=== PATIENT | male | born 1955 | race Caucasian/White ===

== ENCOUNTER → 2019-03-02 | Outpatient (CLI) | payer BC ==
--- NOTE | 2019-03-02 15:57 | US ---
EXAMINATION TYPE: US venous doppler duplex LE RT DATE OF EXAM: 03/02/2019 3:42 PM COMPARISON: NONE CLINICAL HISTORY: M79.604 Pain right leg. Right leg pain and swelling SIDE PERFORMED: Right TECHNIQUE: The lower extremity deep venous system is examined utilizing real time linear array sonog xavi with graded compression, doppler sonography and color-flow sonography. VESSELS IMAGED: External Iliac Vein (EIV) Common Femoral Vein Deep Femoral Vein Greater Saphenous Vein * Femoral Vein Popliteal Vein Small Saphenous Vein * Proximal Calf Veins (* superficial vessels) Right Leg: Appears negative for DVT Grayscale, color doppler, spectral doppler imaging performed of the deep veins of the right lower ext remity. There is normal flow, compressibility, vascular waveforms. IMPRESSION: No ultrasound evidence for acute DVT in the right lower extremity.
[2019-03-02 16:31] LABS: Basophils % (A) 0 %; Eosinophils # (A) 0.3 k/uL (0-0.7); Eosinophils % (A) 3 %; HCT 43.2 % (39.0-53.0); HGB 14.6 gm/dL (13.0-17.5); Lymphocytes # (A) 2.2 k/uL (1.0-4.8); Lymphocytes % (A) 24 %; MCH 29.5 pg (25.0-35.0); MCHC 33.8 g/dL (31.0-37.0); MCV 87.4 fL (80.0-100.0); Mean Platelet Volume 6.7; Monocytes # (A) 0.6 k/uL (0-1.0); Monocytes % (A) 7 %; Neutrophils # (A) 5.9 k/uL (1.3-7.7); Neutrophils % (A) 64 %; Platelet Count 225 k/uL (150-450); RBC 4.94 m/uL (4.30-5.90); RDW 13.4 % (11.5-15.5); WBC 9.2 k/uL (3.8-10.6)
[2019-03-02 16:42] LABS: Albumin 4.5 g/dL (3.5-5.0); Calcium 9.4 mg/dL (8.4-10.2); Potassium 4.7 mmol/L (3.5-5.1); Total Bilirubin 0.9 mg/dL (0.2-1.3); Total Protein 7.6 g/dL (6.3-8.2)
--- NOTE | 2019-03-02 17:17 | XR ---
EXAMINATION TYPE: XR tibia fibula RT DATE OF EXAM: 03/02/2019 COMPARISON: NONE HISTORY: Pain TECHNIQUE: Two views are submitted. FINDINGS: The osseous structures are intact. The joint spaces are preserved. Large calcaneal spurs are noted. Spur involving the Achilles insertion calcaneal appear from the calcaneus. There is a tiny bony density adjacent to the medial malleolus IMPRESSION: 1. Tiny bony densities adjacent the medial malleolus too small to characterize but likely chronic cor relate with point tenderness to exclude avulsion injury. 2. Large calcaneal spurs..
== END | disposition home or self-care (01) ==
LOC: RADUSWWP 15:07
PROVIDERS: ATTEND Internal Medicine
DX: M79.604 Pain in right leg (principal)
CPT/HCPCS: 80053; 85025

== ENCOUNTER → 2019-05-10 | Outpatient (CLI) | payer MEDICARE, BC ==
--- NOTE | 2019-05-10 21:03 | CONS ---
CONSULTATION REASON FOR CONSULTATION: Sleep apnea. HISTORY OF PRESENT ILLNESS: This is a 64-year-old male patient who is coming in to be evaluated for sleep apnea. The patient was diagnosed having obstructive sleep apnea more than 20 years ago. His evaluation was done through a Sleep Center in [place]. The patient was diagnosed having severe GUMARO and he was given a CPAP treatment. Over the years, the patient has lost around 100 pounds and he did not feel he was in need of further CPAP therapy and he quit the treatment altogether. Subsequently, he gradually started gaining weight and he has gained already around 80 pounds back. Currently he weighs around 304 pounds. In the interim, he developed coronary artery disease and underwent coronary artery bypass surgery around 6 weeks ago at [facility]. Postop he developed also some atrial fibrillation. He is coming in to reevaluate himself for sleep apnea. He is very much concerned about sleep apnea knowing that he is somnolent and sleepy. Cincinnati Score is at 9. He is snoring and his has reported that he is quitting breathing at night and there has been reported history of witnessed apneas. Note that the patient is status post UPPP that was done many years back. He goes to bed around 12:30 am, wakes up 6:30 a.m. in the morning. Averages around 6 hours of sleep. It takes him a few minutes to fall asleep. No choking or gasping for air in the middle of the night. No restlessness in the lower extremities. No nocturnal angina or shortness of breath. PAST MEDICAL HISTORY: 1. CAD with previous bypass surgery. It was done approximately 6 weeks ago at [facility]. 2. Obstructive sleep apnea. 3. Postop atrial fibrillation, currently rhythm is sinus. 4. Obesity. PAST SURGICAL HISTORY: Past surgical history includes coronary artery bypass surgery. UPPP, carpal tunnel release, angioplasty and hemorrhoid resection. DRUG ALLERGIES: Not known. OUTPATIENT MEDICATION LIST: Includes: 1. Metoprolol 50 mg p.o. 2 tablets twice a day. 2. Aspirin 81 mg p.o. daily. 3. Pravastatin 4 mg p.o. daily. 4. Eliquis 5 mg p.o. twice a day. SOCIAL HISTORY: The patient is a nonsmoker. No history of alcohol. No history of IV drugs. FAMILY HISTORY: A sister has obstructive sleep apnea. REVIEW OF SYSTEMS: Fourteen-point review of system was done. Positive findings are mentioned in history of present illness. He is a retired aircraft cleaner. No reported history of choking or gasping for air. No nocturia. No grinding of the teeth. No sleepwalking or dry mouth. No anxiety or panic attacks. No heartburn. No palpitation. No depression. No claustrophobia. No sexual dysfunction. No issues with memory or concentration. No altered mentation. PHYSICAL EXAMINATION: BP is 117/74, pulse 92, respirations 16, temperature 98.5, saturation 95% on room air. Cincinnati score is 9. Neck size 18 inches. BMI 45.5, height is 5 feet 8 inches, weight is 304.4. General appearance: Calm, comfortable, obese. Head is atraumatic, normocephalic. NECK: Supple. No JVD. No goiter or neck masses. He has got no uvula and soft palate has been resected post UPPP. Lungs: Diminished otherwise clear. HEART: Sounds regular rate and rhythm. Normal S1, S2. No S3. No murmurs. ABDOMEN: Soft, nontender. No organomegaly. EXTREMITIES: No edema. No cyanosis or clubbing. NEUROLOGIC: He is awake, alert x3. There are no focal neurological deficits. PSYCHIATRIC: Negative for anxiety or depression. IMPRESSION: 1. Obstructive sleep apnea. The patient is coming in for reevaluation. He has lost significant amount of weight over the years and he quit the treatment and after he gained some of his weight back, he is coming in for reevaluation. Symptoms are suggestive and I think there is an obvious component of residual obstructive sleep apnea. Needs to be re-evaluated. Current Cincinnati score is 9 and the patient continues to have somnolence and sleepiness. 2. Coronary artery disease. Previous bypass surgery. 3. History of atrial fibrillation, current rhythm is sinus. 4. Obesity with a BMI of 45.5. PLAN: 1. Proceed with a polysomnogram. 2. Encourage further weight loss. 3. The patient is post Uvulopalatopharyngoplasty. If he turns out to have obstructive sleep apnea, we will proceed with treatment especially with his underlying cardiovascular disease. MMODL / IJN: [id number] /
== END | disposition home or self-care (01) ==
LOC: SLEEP 14:24
PROVIDERS: ATTEND Internal Medicine Critical Care Medicine
DX: G47.33 Obstructive sleep apnea (adult) (pediatric) (principal); I25.10 Atherosclerotic heart disease of native coronary artery without angina pectoris; E66.9 Obesity, unspecified; Z68.42 Body mass index [BMI] 45.0-49.9, adult; Z86.79 Personal history of other diseases of the circulatory system; Z98.84 Bariatric surgery status; Z95.1 Presence of aortocoronary bypass graft; Z98.61 Coronary angioplasty status; Z98.890 Other specified postprocedural states; Z79.82 Long term (current) use of aspirin; Z79.01 Long term (current) use of anticoagulants; Z79.899 Other long term (current) drug therapy
CPT/HCPCS: 99211

== ENCOUNTER → 2021-03-12 | Outpatient (CLI) | payer MEDICARE ==
--- NOTE | 2021-03-12 15:10 | PN ---
PROGRESS NOTE This patient is 65, known history of cardiac disease, previous bypass surgery, known history of obesity with interval 40 pounds weight gain since 2019. He is coming in for sleep apnea evaluation and followup. He is known to have severe GUMARO and his AHI originally was at 50. He was placed on CPAP therapy at a pressure of 10 cm of water. His treatment has been extremely successful over the past 1-1/2 years. On today's evaluation, a 30-day compliancy data shows that the patient has been utilizing his machine an average of 7.7 hours per night. He is using the machine more than 4 hours 100% of the time. Leak is in the order of 18 L/minute as the patient is using a Ferreira FX nasal mask. His AHI while on treatment is down to 1.0. Unfortunately, weight is up to 343. No snoring while on CPAP. He is waking up refreshed and alert during the day. He has more energy. He is not taking any naps. Snoring has completely subsided and the patient is post UPPP regarding sleep apnea. The patient is off anticoagulation. His cardiac rhythm is remain sinus. PHYSICAL EXAMINATION: BP is 160/92, pulse 62, respirations 16, temperature 98.1 saturation 95% on room air. Height is 5 feet 9 inches weight 343, BMI 50.6. MEDICATIONS: Includes aspirin 81 mg p.o. daily, pravastatin 40 mg p.o. daily, metoprolol 100 mg twice a day. Examination general appearance calm comfortable. Head atraumatic normocephalic. Neck is supple Mallampati class 4. There is no goiter or neck mass. Lungs diminished otherwise clear. Heart sounds are regular rate and rhythm normal S1, S2 no murmurs. Abdomen is obese soft nontender. Organs cannot be palpated. No rebound tenderness or guarding. Extremities +1 pitting edema there is no cyanosis or clubbing. Adequate pulse in all 4 extremities. IMPRESSION: 1. Severe obstructive sleep apnea, AHI of 50, continues to be successfully treated with CPAP therapy at a pressure of 10. 2. Hypersomnia, recovered. 3. Snoring, recovered. 4. Obesity with interval 40 pounds weight gain current BMI is 50.6 with a body mass of 343 pounds. 5. Coronary artery disease with bypass surgery. 6. History of atrial fibrillation current rhythm is sinus and the patient is currently off anticoagulation. 7. Previous history of UPPP. PLAN: 1. Continue CPAP therapy at same level of pressure. 2. Encourage weight loss. 3. Maintain the same mask interface which is a wide Mirage FX nose mask. 4. Tight control of cardiovascular risk factors. 5. Cardiac rhythm is sinus. 6. Encourage maintaining good sleep hygiene measures. 7. See me back in a year's time in followup. All of his CPAP supplies will be refilled. The patient is also in need for a new adapter and a power Jesus and this will be ordered. MMODL / IJN: [id number] /
== END ==
LOC: SLEEP 13:18
PROVIDERS: ATTEND Internal Medicine Critical Care Medicine
DX: G47.33 Obstructive sleep apnea (adult) (pediatric) (principal); E66.9 Obesity, unspecified; I25.10 Atherosclerotic heart disease of native coronary artery without angina pectoris; I48.91 Unspecified atrial fibrillation; Z68.43 Body mass index [BMI] 50.0-59.9, adult; Z79.82 Long term (current) use of aspirin; Z95.1 Presence of aortocoronary bypass graft; Z98.890 Other specified postprocedural states; Z99.89 Dependence on other enabling machines and devices

== ENCOUNTER 2022-01-27 11:32 | Emergency (ER) | payer MEDICARE ==
[2022-01-27 11:37] VITALS: BP 159/82; PULSE 63; RESP 18; TEMP 98.2
[2022-01-27 13:21] LABS: Basophils % (A) 1 %; Eosinophils # (A) 0.3 k/uL (0-0.7); Eosinophils % (A) 4 %; HCT 47.4 % (39.0-53.0); HGB 15.4 gm/dL (13.0-17.5); Lymphocytes # (A) 2.1 k/uL (1.0-4.8); Lymphocytes % (A) 29 %; MCH 28.9 pg (25.0-35.0); MCHC 32.5 g/dL (31.0-37.0); MCV 88.9 fL (80.0-100.0); Monocytes # (A) 0.5 k/uL (0-1.0); Monocytes % (A) 7 %; Neutrophils # (A) 4.3 k/uL (1.3-7.7); Neutrophils % (A) 59 %; Platelet Count 207 k/uL (150-450); RBC 5.33 m/uL (4.30-5.90); RDW 13.5 % (11.5-15.5); WBC 7.3 k/uL (3.8-10.6)
[2022-01-27 13:46] LABS: African American GFR (CKD) >90 (>60 ml/min/1.73 sqM); Anion Gap 10 mmol/L; Blood Urea Nitrogen 17 mg/dL (9-20); Calcium 9.1 mg/dL (8.4-10.2); Carbon Dioxide 25 mmol/L (22-30); Chloride 107 mmol/L (98-107); Glucose 104 mg/dL (74-99); Non-African American GFR(CKD) 88 (>60 ml/min/1.73 sqM); Sodium 142 mmol/L (137-145)
[2022-01-27 13:47] LABS: Potassium 4.6 mmol/L (3.5-5.1)
--- NOTE | 2022-01-27 14:51 | CT ---
EXAMINATION TYPE: CT orbits w con DATE OF EXAM: 01/27/2022 INDICATION: Right eye pain, redness and swelling. CT DLP: 385.9 mGy.cm Automated Exposure Control for Dose Reduction was Utilized. TECHNIQUE AND CONTRAST: CT scan of the orbits is performed with IV Contrast, patient injected with 100ml mL of Isovue 300. COMPARISON: None available FINDINGS: Questionable mild right-sided preseptal fat stranding and soft tissue thickening, seen inferiorly wit h questionable mild right-sided proptosis. Unremarkable orbits otherwise. Deviated bony nasal septum convex to the left side. Clear visualized paranasal sinuses and mastoid ai r cells. Grossly unremarkable visualized portion of the brain. IMPRESSION: Suspected mild right-sided preseptal inflammatory changes as described above with questionable possib le right-sided proptosis, please correlate clinically. Grossly unremarkable orbits otherwise.
[2022-01-27] MEDS ORDERED: cefTRIAXone IN SWFI 1,000 MG/10 ML SYRINGE IVP STA (15:03)
--- NOTE | 2022-01-27 16:05 | ED ---
Eye Problem HPI - General Chief complaint: Eye Problems Stated complaint: Eye issues Time Seen by Provider: 01/27/22 11:47 Source: patient Mode of arrival: ambulatory Limitations: no limitations - History of Present Illness Initial comments: Patient is a 66-year-old male presents to emergency room with complaints of right eye swelling. He states that last night he had some lucie- orbital and postocular pressure and pain. He states that his postocular pain and headache-like sensation has resolved however he does continue to have periorbital pain and some occasional pain with movement. He states that he had some transient blurred vision worse than his baseline vision but overall denies any vision anomalies at this time. He has past medical history significant for CAD, sleep apnea and atrial fibrillation that maintaining a sinus rhythm. He denies any other complaints or concerns at this time. - Related Data Previous Rx's Medication Instructions Recorded Triamcinolone 0.5% Cream [Kenalog 1 applic TOPICAL BID #1 tube 04/22/15 0.5% Cream] hydrOXYzine pamoate [Vistaril] 25 mg PO QID PRN #30 cap 04/22/15 Sulfamethox-Tmp 800-160Mg [Bactrim 1 tab PO Q12HR #20 tab 01/27/22 DS 800-160 mg] Allergies Allergy/AdvReac Type Severity Reaction Status Date / Time No Known Allergies Allergy Verified 01/27/22 11:37 Review of Systems ROS Statement: Those systems with pertinent positive or pertinent negative responses have been documented in the HPI. ROS Other: All systems not noted in ROS Statement are negative. Past Medical History Past Medical History: Coronary Artery Disease (CAD) History of Any Multi-Drug Resistant Organisms: None Reported Past Surgical History: Coronary Bypass/CABG Additional Past Surgical History / Comment(s): hemorrhoidectomy, angioplasty, tonsilectomy Past Psychological History: No Psychological Hx Reported Past Alcohol Use History: Occasional Past Drug Use History: None Reported General Exam Limitations: no limitations Pupils: Present: normal accommodation Expanded Eyelids: Swelling: Right Pupils: Regular, Round: Bilateral, Reactive: Bilateral Sclera/Conjunctival: Injection: Right, Exudate: Right IOP (R) in mmH IOP measured with: Tonopen ENT exam: Present: normal oropharynx Neck exam: Present: normal inspection Extremities exam: Present: normal inspection, full ROM, normal capillary refill. Absent: tenderness, pedal edema, joint swelling, calf tenderness Back exam: Present: normal inspection Neurological exam: Present: alert, oriented X3, CN II-XII intact Psychiatric exam: Present: normal affect, normal mood Skin exam: Present: warm, dry, intact, normal color. Absent: rash Course Vital Signs 01/27/22 11:34 Temperature 98.2 F Pulse Rate 63 Respiratory 18 Rate Blood Pressure 159/82 O2 Sat by Pulse 96 Oximetry Medical Decision Making - Medical Decision Making IOP right eye 26. No vision impairment. Computed tomography scan reviewed showing possible right-sided proptosis and preseptal inflammatory changes. IVP rocephin given without complication - Lab Data Result diagrams: 01/27/22 13:10 01/27/22 13:10 Lab Results 01/27/22 01/27/22 Range/Units 13:10 13:10 WBC 7.3 (3.8-10.6) k/uL RBC 5.33 (4.30-5.90) m/uL Hgb 15.4 (13.0-17.5) gm/dL Hct 47.4 (39.0-53.0) % MCV 88.9 (80.0-100.0) fL MCH 28.9 (25.0-35.0) pg MCHC 32.5 (31.0-37.0) g/dL RDW 13.5 (11.5-15.5) % Plt Count 207 (150-450) k/uL MPV 7.0 Neutrophils % 59 % Lymphocytes % 29 % Monocytes % 7 % Eosinophils % 4 % Basophils % 1 % Neutrophils # 4.3 (1.3-7.7) k/uL Lymphocytes # 2.1 (1.0-4.8) k/uL Monocytes # 0.5 (0-1.0) k/uL Eosinophils # 0.3 (0-0.7) k/uL Basophils # 0.0 (0-0.2) k/uL Sodium 142 (137-145) mmol/L Potassium 4.6 (3.5-5.1) mmol/L Chloride 107 (98-107) mmol/L Carbon Dioxide 25 (22-30) mmol/L Anion Gap 10 mmol/L BUN 17 (9-20) mg/dL Creatinine 0.90 (0.66-1.25) mg/dL Est GFR (CKD-EPI)AfAm >90 (>60 ml/min/1.73 sqM) Est GFR (CKD-EPI)NonAf 88 (>60 ml/min/1.73 sqM) Glucose 104 H (74-99) mg/dL Calcium 9.1 (8.4-10.2) mg/dL - Radiology Data Radiology results: report reviewed, image reviewed Disposition Clinical Impression: Periorbital cellulitis Disposition: HOME SELF-CARE Instructions (If sedation given, give patient instructions): Periorbital Cellulitis in Adults (ED) Prescriptions: Sulfamethox-Tmp 800-160Mg [Bactrim DS 800-160 mg] 1 tab PO Q12HR #20 tab Is patient prescribed a controlled substance at d/c from ED?: No Referrals: None,Stated [Primary Care Provider] - 1-2 days Dewayne Pichardo DO [Doctor of Osteopathic Medicine] - 1-2 days Time of Disposition: 16:09
== END 2022-01-27 16:13 | disposition home or self-care (01) ==
LOC: EC 11:32
DX: L03.213 Periorbital cellulitis (principal)
CPT/HCPCS: 36415; 80048; 85025; 70481; 99284; 96374; J0696; Q9967

== ENCOUNTER → 2022-01-28 | Outpatient (CLI) | payer MEDICARE ==
--- NOTE | 2022-02-04 08:22 | USB ---
Reason for Exam: Clinical finding. Indicated Problems: Pain of both sides for 3 Year(s). Technique: Method: Whole Breast Handheld. Findings: The whole breast of both breasts, the axilla of both breasts and the retroareolar of both breasts were scanned. No solid or cystic masses are identified. No axillary lymphadenopathy. Overall Assessment: Negative, BI-RAD 1 Management: Clinical Management of both breasts in 1 year. 1. Further clinical management of patient's bilateral chest pain following CABG. 2. If further imaging evaluation is desired, consider chest radiograph and/or chest CT, for example, if there is concern for sternotomy complication. Electronically signed and approved by: Jan Peraza M.D. Radiologist
== END | disposition home or self-care (01) ==
LOC: RADUSWWP 16:02
PROVIDERS: ATTEND Family Medicine
DX: R92.8 Other abnormal and inconclusive findings on diagnostic imaging of breast (principal)

== ENCOUNTER 2022-02-27 17:45 | Inpatient (IN) | payer OTHER, MEDICARE ==
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
--- NOTE | 2022-02-27 18:38 | XR ---
EXAMINATION TYPE: XR ankle complete LT DATE OF EXAM: 02/27/2022 COMPARISON: NONE HISTORY: Pain TECHNIQUE: 3 views of the left ankle are submitted for evaluation. FINDINGS: Overlying cast material obscures fine bony detail. There is displaced fracture distal fibul a superior lateral malleolar region with displacement of approximately 5 mm. Medial malleolar fractur e is also identified with displacement of approximately 5.4 mm. There is posterior malleolar fracture with displacement of approximately 5 mm. There is disruption of the ankle mortise with displacement medially. No additional fracture seen. IMPRESSION: 1. Trimalleolar fracture with disruption of the ankle mortise.
[2022-02-27] MEDS ORDERED: NALOXONE 0.4 MG/ML 1 ML VIAL IV PRN (20:27)
--- NOTE | 2022-02-27 20:49 | XR ---
EXAMINATION TYPE: XR chest 1V portable DATE OF EXAM: 02/27/2022 HISTORY: Shortness of breath. COMPARISON: None. TECHNIQUE: Single view of the chest is submitted. FINDINGS: Demonstrated are scattered senescent parenchymal change. There is no evidence for focal infiltrate. The heart is stable. Hilar and mediastinal structures are within normal limits. Degenerative changes are seen of the dorsal spine. IMPRESSION: 1. Chronic changes without evidence for acute pulmonary disease.
[2022-02-27 22:40] LABS: Basophils # (A) 0.1 k/uL (0-0.2); Basophils % (A) 1 %; Eosinophils # (A) 0.2 k/uL (0-0.7); Eosinophils % (A) 2 %; HGB 15.4 gm/dL (13.0-17.5); Lymphocytes # (A) 1.8 k/uL (1.0-4.8); Lymphocytes % (A) 14 %; MCH 29.4 pg (25.0-35.0); MCHC 32.7 g/dL (31.0-37.0); MCV 89.8 fL (80.0-100.0); Mean Platelet Volume 7.3; Monocytes # (A) 0.8 k/uL (0-1.0); Monocytes % (A) 6 %; Neutrophils # (A) 9.8 k/uL (1.3-7.7); Neutrophils % (A) 77 %; Platelet Count 197 k/uL (150-450); RBC 5.24 m/uL (4.30-5.90); WBC 12.8 k/uL (3.8-10.6)
[2022-02-27] MEDS: SODIUM CHLORIDE 0.9% 1,000 ML IV SCH (22:44)
[2022-02-27 22:48] LABS: Calcium 9.4 mg/dL (8.4-10.2); Potassium 4.2 mmol/L (3.5-5.1)
[2022-02-27 22:48] LABS: INR 1.1 (<1.2); Partial Thromboplastin Time 25.7 sec (22.0-30.0); Prothrombin Time 11.5 sec (9.0-12.0)
[2022-02-27] MEDS ORDERED: MORPHINE SULFATE 4 MG/ML SYRINGE IV STA (23:28)
[2022-02-28] MEDS: MORPHINE SULFATE 4 MG/ML SYRINGE IVP PRN ×3 (02:35→17:13)
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
[2022-02-28] MEDS ORDERED: IV FLUID CONTINUATION 800 ML IV ONE (12:07)
[2022-02-28] MEDS ORDERED: ONDANSETRON 4 MG/2 ML VIAL ONE (12:08)
[2022-02-28] MEDS ORDERED: ONDANSETRON 4 MG/2 ML VIAL IVP ONE (12:08)
[2022-02-28] MEDS ORDERED: METOPROLOL TARTRATE 5 MG/5 ML VIAL IVP ONE (12:09)
[2022-02-28] MEDS ORDERED: fentaNYL (PF) 50 MCG/ML 2 ML AMP ONE (12:12)
[2022-02-28] MEDS ORDERED: MIDAZOLAM 2 MG/2 ML VIAL ONE (12:12)
[2022-02-28] MEDS ORDERED: LIDOCAINE 2% INJ 20 MG/ML (2 ML VIAL) ONE (12:12)
[2022-02-28] MEDS ORDERED: PROPOFOL 10 MG/ML 20 ML VIAL IV ONE (12:12)
[2022-02-28] MEDS ORDERED: ceFAZolin 1,000 MG VIAL ONE (12:12)
[2022-02-28] MEDS ORDERED: SODIUM CHLORIDE 0.9% 150 ML with ceFAZolin 3,000 MG IV ONE ×2 (12:32)
[2022-02-28] MEDS ORDERED: ceFAZolin 1,000 MG in SODIUM CHLORIDE 0.9% 1,000 ML IRRIGATION ONE (12:39)
[2022-02-28] MEDS: SODIUM CHLORIDE 0.9% 1,000 ML IV SCH (13:11)
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
[2022-02-28] MEDS ORDERED: ACETAMINOPHEN TAB 325 MG TAB PO PRN (13:55)
[2022-02-28] MEDS ORDERED: HYDROcodone/APAP 7.5-325MG 1 EACH TAB PO PRN (13:55)
--- NOTE | 2022-02-28 15:01 | FL ---
Fluoroscopy HISTORY: Left ankle fracture 19 seconds fluoroscopy time supplied to the referring clinician. 3 intraoperative C-arm images docum ent the procedure. See dictated report from orthopedic surgery.
[2022-02-28] MEDS: HYDROcodone/APAP 7.5-325MG 1 EACH TAB PO PRN (19:39)
[2022-02-28] MEDS: METOPROLOL TARTRATE 50 MG TAB PO SCH (19:45)
[2022-02-28] MEDS: ceFAZolin 3 GM in SODIUM CHLORIDE 0.9% 100 ML IVPB SCH (19:45)
[2022-02-28] MEDS ORDERED: PRAVASTATIN SODIUM 40 MG TAB PO SCH (21:00)
[2022-03-01] MEDS: SODIUM CHLORIDE 0.9% 1,000 ML IV SCH ×2 (00:49→12:51)
[2022-03-01] MEDS: MORPHINE SULFATE 4 MG/ML SYRINGE IVP PRN ×2 (02:22→07:48)
[2022-03-01] MEDS: ceFAZolin 3 GM in SODIUM CHLORIDE 0.9% 100 ML IVPB SCH (03:34)
[2022-03-01] MEDS: HYDROcodone/APAP 7.5-325MG 1 EACH TAB PO PRN (06:12)
[2022-03-01] MEDS: METOPROLOL TARTRATE 50 MG TAB PO SCH (07:48)
[2022-03-01 08:15] VITALS: PULSE 75; RESP 18
[2022-03-01] MEDS ORDERED: ENOXAPARIN 40 MG/0.4 ML SYRINGE SQ SCH (09:00)
--- NOTE | 2022-03-01 12:21 | P.PN ---
Subjective Progress Note Date: 03/01/22 Principal diagnosis: Status post ORIF left trimalleolar ankle fracture Patient evaluated today at bedside, his was present at bedside. Patient is resting comfortably, the foot is currently elevated on multiple pillows. He states that he is having some pain throughout the ankle but it is tolerable. Currently denies any headaches, lightheadedness, chest pain or shortness of breath. He has been urinating with no difficulty. Objective - Vital Signs Vital signs: Vital Signs Temp 98.6 F 03/01/22 08:00 Pulse 75 03/01/22 08:00 Resp 18 03/01/22 08:00 BP 122/73 03/01/22 08:00 Pulse Ox 98 03/01/22 08:00 FiO2 Intake & Output 02/28/22 03/01/22 03/01/22 18:59 06:59 18:59 Intake Total 651 1150 Output Total 10 200 Balance 641 950 Intake: IV 651 Intake, IV Titration 1100 Amount Sodium Chloride 0.9% 1, 900 000 ml @ 75 mls/hr IV . [id number] [facility] Rx#:[id number] ceFAZolin 3 gm In Sodium 200 Chloride 0.9% 100 ml @ 100 mls/hr IVPB Q8H [facility] Rx#:[id number] Oral 50 Output: Urine 200 Estimated Blood Loss 10 Other: # Voids 1 4 - Exam Left lower extremity: Postoperative splint is in good position and condition. Patient is able to wiggle the toes and no difficulty. His sensation to light touch both proximal distal to the splint are intact. Skin is warm to touch. - Labs CBC & Chem 7: 02/27/22 22:00 02/27/22 22:25 Assessment and Plan Assessment: Postoperative day #1 status post ORIF left trimalleolar ankle fracture Plan: Pain control, plan for discharge home on [place] 10 mg/325 mg GI and DVT prophylaxis, aspirin 325 mg daily for 1 month, hold baby aspirin at this time. Stool softeners will also be utilized to discharge Wound care was discussed with patient and family at bedside, this to include icing and elevating techniques and showering technique Nonweightbearing left lower extremity I did speak with case management today, the knee scooter will be delivered prior to discharge Activity level restrictions discuss the patient, this included use of a walker/knee scooter Medical recommendations Discharge planning: Stable for discharge home today Time with Patient: Less than 30
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
[2022-03-01 16:19] VITALS: BP 166/92; TEMP 98.8
== END 2022-03-01 15:21 | disposition home or self-care (01) | DRG 493 ==
LOC: EC 17:45 → 4SSUR 20:27
PROVIDERS: ADMIT Orthopaedic Surgery; ATTEND Orthopaedic Surgery
PROC: 0QSK04Z Reposition Left Fibula with Internal Fixation Device, Open Approach (ICD-10-PCS; principal; 2022-02-28 10:00)
PROC: 0QSH04Z Reposition Left Tibia with Internal Fixation Device, Open Approach (ICD-10-PCS; principal; 2022-02-28 10:00)
DX: S82.852A Displaced trimalleolar fracture of left lower leg, initial encounter for closed fracture (principal); Z68.42 Body mass index [BMI] 45.0-49.9, adult; E66.01 Morbid (severe) obesity due to excess calories; V28.3XXA Person boarding or alighting a motorcycle injured in noncollision transport accident, initial encounter; G47.33 Obstructive sleep apnea (adult) (pediatric); E78.5 Hyperlipidemia, unspecified; I10 Essential (primary) hypertension; I25.10 Atherosclerotic heart disease of native coronary artery without angina pectoris; Z79.899 Other long term (current) drug therapy; Z79.82 Long term (current) use of aspirin; Z95.5 Presence of coronary angioplasty implant and graft; Z95.1 Presence of aortocoronary bypass graft; Z88.2 Allergy status to sulfonamides
CPT/HCPCS: 71045; 80048; 85025; 85610; 85730; 93005; 96361; 96374; 99285